=== PATIENT | female | born 1990 | race Caucasian/White ===

== ENCOUNTER 2018-08-08 13:19 | Emergency (ER) | payer OTHER ==
[2018-08-08 13:39] VITALS: BP 139/88; PULSE 139; TEMP 98.4; BMI 28.1
[2018-08-08] MEDS ORDERED: KETOROLAC TROMETHAMINE 60 MG/2 ML VIAL IM ONE (13:50)
[2018-08-08] MEDS ORDERED: KETOROLAC TROMETHAMINE 60 MG/2 ML VIAL ONE (13:51)
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
== END 2018-08-08 14:07 | disposition home or self-care (01) ==
LOC: JER 13:19
PROC: 3E0233Z Introduction of Anti-inflammatory into Muscle, Percutaneous Approach (ICD-10-PCS; principal; 2018-08-08)
DX: S16.1XXA Strain of muscle, fascia and tendon at neck level, initial encounter (principal); X50.1XXA Overexertion from prolonged static or awkward postures, initial encounter; X50.9XXA Other and unspecified overexertion or strenuous movements or postures, initial encounter; Y93.89 Activity, other specified; Y92.89 Other specified places as the place of occurrence of the external cause; Y99.8 Other external cause status; F41.9 Anxiety disorder, unspecified; F90.9 Attention-deficit hyperactivity disorder, unspecified type; F17.210 Nicotine dependence, cigarettes, uncomplicated
CPT/HCPCS: 99281-25

== ENCOUNTER 2021-12-20 14:44 | Emergency (ER) | payer OTHER ==
[2021-12-20 14:54] VITALS: TEMP 98; BMI 34.4
[2021-12-20 17:45] LABS: BASO % 1.9 % (0-2.0); EOS % 0.8 % (0-4.5); HEMOGLOBIN 13.5 GM/dL (10.7-15.3); LYMPH % 32.5 % (8-40); MCH 38.9 pg (25.7-33.7); MCHC 34.5 g/dl (32.0-36.0); MEAN CELL VOLUME 112.8 fl (80-96); MEAN PLT VOLUME 9.2 fl (7.5-11.1); NEUT % 56.8 % (42.8-82.8); PLATELET COUNT 347 10^3/uL (134-434); RBC 3.46 M/mm3 (3.60-5.2); RDW 15.8 % (11.6-15.6)
[2021-12-20 17:55] LABS: INR 1.14 (0.83-1.09); PROTHROMBIN TIME (PATIENT) 13.1 SEC (9.7-13.0)
[2021-12-20 17:57] LABS: ACTIVATED PTT 39.4 SECONDS (25.2-36.5)
[2021-12-20 18:04] LABS: CHLORIDE 102 mmol/L (98-107); SODIUM 137 mmol/L (136-145)
[2021-12-20 18:06] LABS: ANION GAP 13 MMOL/L (8-16); BLOOD UREA NITROGEN 5.2 mg/dL (7-18); CO2 21 mmol/L (21-32); GAMMA GLUTAMYL TRANSPEPTIDASE 425 U/L (5-85); GLUCOSE,RANDOM 102 mg/dL (74-106)
[2021-12-20 18:09] LABS: CREATININE 0.6 mg/dL (0.55-1.3); SGOT/AST 245 U/L (15-37); SGPT/ALT 78 U/L (13-61)
[2021-12-20 18:11] LABS: TOT PROT 5.6 g/dl (6.4-8.2)
[2021-12-20 18:12] LABS: ALK PHOS 275 U/L (45-117)
[2021-12-20 18:13] LABS: LDH 514 U/L (84-246)
[2021-12-20 18:14] LABS: BILIRUBIN,TOTAL 18.6 mg/dL (0.2-1)
[2021-12-20 18:25] LABS: ANISOCYTOSIS 2+; MACROCYTOSIS 2+; TARGET CELLS 1+; TEAR DROP CELLS 1+
[2021-12-20 19:00] LABS: HIV INTERPRETATION NEGATIVE (NEGATIVE)
[2021-12-20 22:11] VITALS: BP 114/77; PULSE 88; RESP 20
== END 2021-12-20 22:11 | disposition short-term general hospital (02) ==
LOC: JER 14:44
DX: K72.00 Acute and subacute hepatic failure without coma (principal)
CPT/HCPCS: 0241U-QW; 36415; 76705-TC; 80053; 80307; 82977; 83615; 85025; 85610; 85730; 86704; 86803; 87340; 87389; 87517; 99285-25